=== PATIENT | female | born 1975 | race Caucasian/White ===

== ENCOUNTER 2021-01-07 08:51 | Emergency (ER) | payer OTHER ==
[~2021-01-07] VITALS: Ht 157.5 cm; Wt 68.0 kg
== END 2021-01-07 14:16 | disposition home or self-care (01) ==
LOC: ER 08:51
DX: R53.81 Other malaise (principal); Z20.822 Contact with and (suspected) exposure to COVID-19

== ENCOUNTER 2021-10-14 20:09 | Emergency (ER) | payer OTHER ==
[~2021-10-14] VITALS: Ht 160 cm; Wt 63.5 kg
== END 2021-10-15 | disposition left against medical advice (07) ==
LOC: ER 20:09
DX: Z53.21 Procedure and treatment not carried out due to patient leaving prior to being seen by health care provider (principal)

== ENCOUNTER 2023-04-02 12:41 | Emergency (ER) | payer OTHER ==
[~2023-04-02] VITALS: Ht 160 cm; Wt 63.5 kg
[2023-04-02 15:22] LABS: HEMATOCRIT 38.9 % (36.0-45.00); MEAN CELL VOLUME 95.8 fL (80.00-100.00); MEAN CORPUSCULAR HEMOGLOBIN 31.9 pg (27.00-32.0); MEAN CORPUSCULAR HGB CONC 33.3 g/dl (32.0-36.0); PLATELET COUNT 215 K/uL (150-450); RED BLOOD COUNT 4.06 M/uL (4.00-6.00); RED CELL DISTRIBUTION WIDTH 13.8 % (11.5-14.5)
[2023-04-02 15:28] LABS: PH,URINE 7.5 (5.0-8.0); URINE APPEARANCE Cloudy; URINE BILIRRUBIN Negative (NEGATIVE); URINE BLOOD Moderate; URINE COLOR Dark Yellow; URINE GLUCOSE Negative (NEGATIVE); URINE LEUKOCYTE Trace; URINE NITRATE Positive; URINE PROTEIN 30 (NEGATIVE)
[2023-04-02 15:31] LABS: URINE BACTERIA 1768.9 uL (0.0-1933); URINE EPITHELIAL CELLS 31.6 uL (0.0-38.8); URINE RBC 7.1 uL (0.0-20.8); URINE WBC 16.5 uL (0.0-23.2)
[2023-04-02 15:42] LABS: CALCIUM 8.9 mg/dL (8.5-10.1); CREATININE SERUM 0.72 mg/dL (0.55-1.02); GFR 86.82; POTASSIUM 4.47 mEq/L (3.5-5.1)
== END 2023-04-02 21:23 | disposition home or self-care (01) ==
LOC: ER 12:41
PROVIDERS: Emergency Medicine
DX: K52.9 Noninfective gastroenteritis and colitis, unspecified (principal); E86.0 Dehydration; R10.9 Unspecified abdominal pain; I10 Essential (primary) hypertension; E11.9 Type 2 diabetes mellitus without complications

== ENCOUNTER 2023-09-02 09:13 | Emergency (ER) | payer OTHER ==
[~2023-09-02] VITALS: Ht 160 cm; Wt 70.8 kg
== END 2023-09-02 12:12 | disposition home or self-care (01) ==
LOC: ER 09:14
DX: J06.9 Acute upper respiratory infection, unspecified (principal); Z20.822 Contact with and (suspected) exposure to COVID-19